=== PATIENT | female | born 1945 | race African-American/Black ===

== ENCOUNTER 2019-11-11 12:53 | Emergency (ER) | payer MEDICARE, SELFPAY ==
[2019-11-11 13:07] VITALS: BP 194/104; PULSE 92; RESP 20; TEMP 36.5; O2SAT 98
--- NOTE | 2019-11-11 13:14 | ED.GENADULT ---
HPI - General Adult General Chief complaint: Shortness of Breath/Dyspnea Stated complaint: Chest Pain Time Seen by Provider: 11/11/19 13:14 Source: patient Mode of arrival: ambulatory Limitations: no limitations History of Present Illness HPI narrative: 74-year-old female patient presents the [facility] care with complaints of midsternal chest pain and shortness of breath. Patient states she has had a cold for the past 3 days that started however last night today she started having midsternal chest pain. Patient states that hurts all the time does not necessarily worsen with deep inspiration or coughing. Patient states that she does have a history of COPD but no longer is an active smoker. Denies any fevers that she is aware of. Patient states she has also had stuffy nose, runny nose and a cough. Related Data Home Medications Medication Instructions Recorded Confirmed amlodipine 5 mg tablet 5 mg PO DAILY 09/03/19 ergocalciferol (vitamin D2) 50 mcg 50 mcg PO DAILY 09/03/19 (2,000 unit) capsule fluticasone furoate 200 1 inhalation INHALATION DAILY 09/03/19 mcg-vilanterol 25 mcg/dose inhalation powder guanfacine 1 mg tablet 1 mg PO DAILY 09/03/19 insulin lispro 200 unit/mL (3 mL) 30 unit SUB-Q QACDINNER 09/03/19 subcutaneous pen isosorbide mononitrate 60 mg 60 mg PO DAILY 09/03/19 tablet,extended release 24 hr sharps bin-insulin syrin-needl 1/2 #1 09/03/19 mL 30 gauge x 16 tizanidine 2 mg tablet 2 mg PO TID PRN 09/03/19 Allergies Allergy/AdvReac Type Severity Reaction Status Date / Time strawberry Allergy Intermediate RASH AND Verified 11/11/19 13:26 ITCHING Penicillins Allergy Unknown itch & Verified 09/03/19 11:21 rash Review of Systems Review of Systems: Narrative: CONSTITUTIONAL: Denies fever, chills, or sweats. EYES: Denies visual changes, redness, or discharge. ENT: Positive rhinorrhea, congestion, denies sore throat, or otalgia. CARDIOVASCULAR: Positive chest pain, denies palpitations, or edema. RESPIRATORY: Positive cough with dyspnea. GASTROINTESTINAL: Denies abdominal pain, nausea, vomiting, or diarrhea. GENITOURINARY: Denies dysuria or hematuria. SKIN: Denies rash or itching. MUSCULOSKELETAL: Denies back pain, joint pain, or myalgia. NEUROLOGIC: Denies headache, numbness, or weakness. PSYCHIATRIC: Denies anxiety or depression. 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 Unspecified diastolic (congestive) heart failure Family History Family History (Updated 05/13/16 @ 23:19 by DOCTOR UNKNOWN) Father Hypertension Family history of arthritis Patient's father is Mother Asthma Patient's mother is Sibling Family history of diabetes mellitus in first degree relative Other Diabetes mellitus Family history of cardiovascular disease Family history of lung disease Family history of malignant neoplasm Social History Social History (Updated 10/29/19 @ 11:08 by Fariba Carrillo) Smoking status: Former smoker Second hand tobacco smoke exposure: No Smoking end date: 10/16/14 Alcohol intake: never Substance use: never Substance use type: does not use Gender identity (if verbalized by the patient): Female Exam Narrative: Exam Narrative: GENERAL: ill-appearing, well-nourished, HEAD: Normocephalic, atraumatic. EYES: PERRLA and EOMI. ENT: Nares with erythema and edema noted bilaterally, no rhinorrhea or epistaxis. Mucous membranes moist. Posterior pharynx with no erythema, tonsillectomy,
--- NOTE | 2019-11-11 13:18 | ECG_ITS ---
Measurements Intervals [place] Rate: 88 P: 43 PA: 170 QRS: -11 QRSD: 96 T: -56 QT: 371 QTc: 450 Interpretive Statements SINUS RHYTHM NONSPECIFIC ST & T-WAVE ABNORMALITY- DIFFUSE LEADS BASELINE ARTIFACT- II, III, AVF BORDERLINE ECG Electronically Signed On 11-11-2019 13:39:52 BLENDING OPERATOR by Ney Mckeon D.O.
[2019-11-11] MEDS: ALBUTEROL SULFATE NEB 2.5 MG/3 ML INH INHALATION (13:24)
[2019-11-11] MEDS: IPRATROPIUM BR 0.02% INH SOLN 0.5 MG/2.5 ML VIAL INHALATION (13:24)
[2019-11-11 13:55] VITALS: BP 170/100; PULSE 101; RESP 26; O2SAT 95
== END 2019-11-11 13:55 | disposition short-term general hospital (02) ==
PROVIDERS: Emergency Provider Nurse Practitioner Family
DX: R07.89 Other chest pain (principal); R06.02 Shortness of breath; R06.2 Wheezing; Z87.891 Personal history of nicotine dependence; C91.12 Chronic lymphocytic leukemia of B-cell type in relapse; E11.40 Type 2 diabetes mellitus with diabetic neuropathy, unspecified; I13.0 Hypertensive heart and chronic kidney disease with heart failure and stage 1 through stage 4 chronic kidney disease, or unspecified chronic kidney disease; E11.22 Type 2 diabetes mellitus with diabetic chronic kidney disease; N18.9 Chronic kidney disease, unspecified; I50.30 Unspecified diastolic (congestive) heart failure; I69.319 Unspecified symptoms and signs involving cognitive functions following cerebral infarction
CPT/HCPCS: 93005; 94640; 99213; G0463